=== PATIENT | male | born 1960 | race Caucasian/White ===

== ENCOUNTER 2019-11-02 20:17 | Emergency (ER) | payer BC ==
[2019-11-02 20:34] VITALS: BP 144/100
[2019-11-02] MEDS ORDERED: Amoxicillin PO (*) 500 MG CAP PO ONE (20:52)
[2019-11-02] MEDS ORDERED: Amoxicillin PO (*) 250 MG CAP PO ONE (20:53)
--- NOTE | 2019-11-02 20:59 | UC ---
Respiratory Complaint HPI - HPI Summary HPI Summary: 58 yo male with recent bronchitis Dec- through two rounds of antibiotics and steroids Cough free x one month Now with 4 day hx of severe rhinorrhea and cough/wheezing HE REFUSES TO USE INHALERS OR NEBS BECAUSE HE DOESN"T BELIEVE IN IT. no f/c sob at times no FRIEND or myalgias - History of Current Complaint Chief Complaint: UCGeneralIllness Stated Complaint: COUGH, SOB Time Seen by Provider: 11/02/19 20:36 Hx Obtained From: Patient Onset/Duration: Sudden Onset - while in smoke filled bar, Lasting Days Timing: Constant Severity Initially: Mild Severity Currently: Moderate Pain Intensity: 0 Pain Scale Used: 0-10 Numeric Character: Cough: Nonproductive Aggravating Factors: Allergens Alleviating Factors: Nothing Associated Signs And Symptoms: Positive: Wheezing, Nasal Congestion Related History: Similar Episode/Dx as: - Bronchitis - Allergies/Home Medications Allergies/Adverse Reactions: Allergies Allergy/AdvReac Type Severity Reaction Status Date / Time ketoprofen [From Orudis] Allergy Intermediate Hives Verified 11/02/19 20:33 Home Medications: Home Medications Lisinopril TAB* [Prinivil TAB*] 10 mg PO DAILY 11/02/19 [History Confirmed 11/02] Metoprolol Tartrate TAB* [Lopressor TAB*] 25 mg PO DAILY 11/02/19 [History Confirmed 11/02/19] PMH/Surg Hx/FS Hx/Imm Hx Previously Healthy: Yes Cardiovascular History: Hypertension Respiratory History: Bronchitis - Surgical History Surgical History: Yes Surgery Procedure, Year, and Place: knee. shoulder - Family History Known Family History: Positive: Hypertension - Social History Alcohol Use: Daily Alcohol Amount: 1 drink daily Substance Use Type: None Smoking Status (MU): Never Smoked Tobacco Review of Systems All Other Systems Reviewed And Are Negative: Yes Constitutional: Positive: Negative Skin: Positive: Negative Eyes: Positive: Negative ENT: Positive: Nasal Discharge - ++++ Respiratory: Positive: Cough Cardiovascular: Positive: Negative Gastrointestinal: Positive: Negative Genitourinary: Positive: Negative Motor: Positive: Negative Neurovascular: Positive: Negative Musculoskeletal: Positive: Negative Neurological/Mental Status: Positive: Negative Psychological: Positive: Negative Physical Exam Triage Information Reviewed: Yes Appearance: Well-Appearing, No Pain Distress, Well-Nourished Vital Signs: Initial Vital Signs Temp 97.9 F 11/02/19 20:28 Pulse 66 11/02/19 20:28 Resp 16 11/02/19 20:28 BP 144/100 11/02/19 20:28 Pulse Ox 98 11/02/19 20:28 Vital Signs Reviewed: Yes Eyes: Positive: Conjunctiva Clear ENT: Positive: Hearing grossly normal, Nasal congestion, Nasal drainage, Uvula midline. Negative: TM bulging, TM dull, TM red, Tonsillar swelling, Tonsillar exudate, Trismus, Muffled voice, Hoarse voice, Dental tenderness Dental Exam: Normal Neck: Positive: Supple, Nontender, No Lymphadenopathy Respiratory: Positive: No respiratory distress, No accessory muscle use, Wheezing - with forced expiration Cardiovascular: Positive: RRR Musculoskeletal: Positive: ROM Intact, No Edema Neurological: Positive: Alert Psychological Exam: Normal Skin Exam: Normal Respiratory Course/Dx - Differential Dx/Diagnosis Provider Diagnosis: Bronchitis Discharge ED - Sign-Out/Discharge Documenting (check all that apply): Patient Departure All imaging exams completed and their final reports reviewed: No Studies - Discharge Plan Condition: Stable Disposition: HOME Patient Education Materials: Bronchospasm (ED) Referrals: No Primary Care Phys,NOPCP [Primary Care Provider] - Additional Instructions: I suggest you get some flonase nasal spray (OTC) for you nasal symptoms see you MD during the week Amoxil 875 twice daily x 7 days prednisone 20 mg 2 tablets once every AM x 4 days - Billing Disposition and Condition Condition: STABLE Disposition: Home
== END 2019-11-02 21:04 | disposition home or self-care (01) ==
LOC: UCCORT 20:17
DX: J40 Bronchitis, not specified as acute or chronic (principal); I10 Essential (primary) hypertension; R09.89 Other specified symptoms and signs involving the circulatory and respiratory systems; Z88.6 Allergy status to analgesic agent; Z79.899 Other long term (current) drug therapy
CPT/HCPCS: 99202; A9270-GY; G0463; J7512